=== PATIENT | female | born 1980 | race Caucasian/White ===

== ENCOUNTER 2016-12-27 21:31 | Observation (INO) | payer MEDICAID | END 2016-12-28 00:15 | disposition home or self-care (01) | LOC: FLD 21:31 | PROVIDERS: ADMIT Obstetrics & Gynecology; ATTEND Obstetrics & Gynecology | DX: O47.1 False labor at or after 37 completed weeks of gestation (principal); Z3A.38 38 weeks gestation of pregnancy | CPT/HCPCS: G0378 ×2 ==

== ENCOUNTER → 2017-01-03 | Outpatient (CLI) | payer MEDICAID | LOC: FIMAGING 14:32 | PROVIDERS: ATTEND Obstetrics & Gynecology | DX: O36.5930 Maternal care for other known or suspected poor fetal growth, third trimester, not applicable or unspecified (principal); O09.33 Supervision of pregnancy with insufficient antenatal care, third trimester; O99.333 Smoking (tobacco) complicating pregnancy, third trimester; O09.43 Supervision of pregnancy with grand multiparity, third trimester; F17.200 Nicotine dependence, unspecified, uncomplicated; Z3A.32 32 weeks gestation of pregnancy ==

== ENCOUNTER → 2017-01-17 | Outpatient (CLI) | payer MEDICAID | LOC: FIMAGING 12:25 | PROVIDERS: ATTEND Obstetrics & Gynecology | DX: O09.523 Supervision of elderly multigravida, third trimester (principal); O36.5930 Maternal care for other known or suspected poor fetal growth, third trimester, not applicable or unspecified; Z3A.35 35 weeks gestation of pregnancy; O09.43 Supervision of pregnancy with grand multiparity, third trimester ==

== ENCOUNTER → 2017-01-31 | Outpatient (CLI) | payer MEDICAID | LOC: FIMAGING 12:21 | PROVIDERS: ATTEND Obstetrics & Gynecology | DX: O09.33 Supervision of pregnancy with insufficient antenatal care, third trimester (principal); O09.43 Supervision of pregnancy with grand multiparity, third trimester; O09.523 Supervision of elderly multigravida, third trimester; O99.333 Smoking (tobacco) complicating pregnancy, third trimester; F17.200 Nicotine dependence, unspecified, uncomplicated; Z3A.37 37 weeks gestation of pregnancy ==

== ENCOUNTER 2017-02-06 03:08 | Inpatient (IN) | payer MEDICAID ==
--- NOTE | 2017-02-06 03:18 | EDPHY ---
H & P Stated Complaint: rectal bleeding, 40 weeks preg Time Seen by Provider: 02/06/17 03:18 HPI/ROS: Chief Complaint: Rectal bleeding HPI: 36-year-old woman who is 40 weeks got up this morning and went to the bathroom. After having a bowel movement noticed bright red blood on the toilet tissue and blood in the toilet water. She has not had any vaginal bleeding. No abdominal pain or cramping. Has been feeling the baby move. Called the nurse and was told to present for evaluation. Family is in [place] so they called 911. Patient has not had any complications with this . No labor or vaginal bleeding. Had 1 episode of rectal bleeding about an hour ago, none since. ROS: 10 point Review of Systems is negative except as noted in the HPI. PMH: None Social History: No smoking, no alcohol, no recreational drug use Family History: non-contributory Physical Exam: Gen: Awake, Alert, No Distress HEENT: Nose: no rhinorrhea Eyes: PERRLA, EOMI Mouth: Moist mucosa Neck: Supple, no JVD Abd: Gravid uterus consistent with dates, non-tender : There is no blood from the vaginal introitus Rectal: There are noted hemorrhoids with no active bleeding Ext: no edema, non-tender Skin: no rash Neuro: CN II-XII intact, Sensation grossly intact, Strength 5/5 in bilateral upper and lower extremities - Personal History LMP (Females 10-55): Current Tetanus/Diphtheria Vaccine: Unsure Current Tetanus Diphtheria and Acellular Pertussis (TDAP): Unsure - Medical/Surgical History Hx Asthma: No Hx Chronic Respiratory Disease: No Hx Diabetes: No Hx Cardiac Disease: No Hx Renal Disease: No Hx Cirrhosis: No Hx Alcoholism: No Hx HIV/AIDS: No Hx Splenectomy or Spleen Trauma: No Other PMH: ABD SURGERY, head surgery, FACE ABSCESS, Asthma, Hernia, Hx Anxiety/ Depression, Hx ADHD - Social History Smoking Status: Light smoker Constitutional: Initial Vital Signs Temperature (C) 36.7 C 02/06/17 03:14 Heart Rate 80 02/06/17 03:14 Respiratory Rate 16 02/06/17 03:14 Blood Pressure 123/71 H 02/06/17 03:14 O2 Sat (%) 96 02/06/17 03:14 O2 Delivery Mode Room Air Allergies/Adverse Reactions: codeine Allergy (Verified 09/10/16 06:55) Penicillins Allergy (Verified 09/10/16 06:55) Home Medications: Medication Instructions Recorded Medical Pot 09/10/16 Ondansetron Odt [Zofran Odt 4 mg 4 mg PO Q4PRN PRN #7 tab 09/10/16 (*)] Lidocaine 2% Jelly TP PRN 02/06/17 Percocet 10-325 mg Tablet 0.5 tab PO PRN PRN 02/06/17 1 tab PO DAILY 02/06/17 Medical Decision Making ED Course/Re-evaluation: 36-year-old 40 week with rectal bleeding. No active bleeding at this time. No blood at the vaginal introitus. She is not having abdominal pain or contractions. Hemodynamically is fine. Will discharge to labor and delivery for further evaluation. Departure - Departure Disposition: [facility] Inpatient Acute Clinical Impression: Rectal bleeding, Condition: Fair
[2017-02-06 04:14] LABS: ALANINE AMINOTRANSFERASE 28 IU/L (9-52); ASPARTATE AMINOTRANSFERASE 25 IU/L (14-46); BILIRUBIN,TOTAL 0.5 mg/dL (0.1-1.4); BILIRUBIN-CONJUGATED 0.4 mg/dL (0.0-0.5); BILIRUBIN-UNCONJUGATED 0.1 mg/dL (0.0-1.1); CREATININE 0.6 mg/dL (0.6-1.0); GLOMERULAR FILTRATION RATE > 60; LACTATE DEHYDROGENASE 455 IU/L (313-618); URIC ACID 4.3 mg/dL (2.5-6.8)
[2017-02-06 04:16] LABS: % IMMATURE GRANULYOCYTES 0.4 % (0.0-1.1); ABSOLUTE IMMATURE GRANULOCYTES 0.04 10^3/uL (0.00-0.10); ADD DIFF? NO; ADD MORPH? NO; ADD SCAN? NO; ATYPICAL LYMPHOCYTE FLAG 10 (0-99); FRAGMENT RBC FLAG 0 (0-99); HEMATOCRIT 38.1 % (38.0-47.0); LEFT SHIFT FLG 0 (0-99); LIPEMIA HEMOLYSIS FLAG 90 (0-99); MEAN CELL HEMOGLOBIN 31.1 pg (27.9-34.1); MEAN CELL HEMOGLOBIN CONCENTR. 34.1 g/dL (32.4-36.7); MEAN CELL VOLUME 91.1 fL (81.5-99.8); MEAN PLATELET VOLUME 11.1 fL (8.7-11.7); PLATELET CLUMPS FLAG 30 (0-99); PLATELET COUNT 214 10^3/uL (150-400); RED BLOOD CELL COUNT 4.18 10^6/uL (4.18-5.33)
--- NOTE | 2017-02-06 08:01 | OBPROG ---
OBG Progress Note Assessment/Plan: Assessment: cat 1 fhr pain from hemorroids irregular contractions no further bleeding from hemorroid noted elevated bp occasionally with serial bps pih labs wnl consulted with dr. elary on poc Plan:possible IOL 02/06/17 08:03 Subjective: Pain from hemorroid I am uncomfortable. Denies leaking bleeding or cramping. No further bleeding recttaly has slept since coming to labor and delivery last night at 0300 Objective: 02/06/17 03:16 02/06/17 03:16 Uric Acid 4.3 mg/dL (2.5-6.8) 02/06/17 03:16 Total Bilirubin 0.5 mg/dL (0.1-1.4) 02/06/17 03:16 Conjugated Bilirubin 0.4 mg/dL (0.0-0.5) 02/06/17 03:16 Unconjugated Bilirubin 0.1 mg/dL (0.0-1.1) 02/06/17 03:16 AST 25 IU/L (14-46) 02/06/17 03:16 ALT 28 IU/L (9-52) 02/06/17 03:16 Lactate Dehydrogenase 455 IU/L (313-618) 02/06/17 03:16 Temp Pulse Resp BP Pulse Ox 36.7 C 80 16 123/71 H 96 02/06/17 03:14 02/06/17 03:14 02/06/17 03:14 02/06/17 03:14 02/06/17 03:14 - SVE Dilation (cm): 1 Effacement (%): 50 Station: -2 Current Contraction Pattern: Irregular, Other (Specify) FHR (bpm): 125 FHR Pattern Variability: Moderate FHR Category: 1 Membranes: Intact - Physical Exam General Appearance: WD/WN, alert, no apparent distress Respiratory: chest non-tender, lungs clear, normal breath sounds Cardiac/Chest: regular rate, rhythm Abdomen: normal bowel sounds Genitourinary: rectal (hemorroid bleeding evaluated in the er last night/ after an episode of bleeding after a BM) Membranes: Intact Extremities: normal range of motion, Mary's sign (negative bilaterally ) DTR- Lower Extremities: Knee (R): 1+, Knee (L): 1+ (no clonus bilaterally) Skin: normal color, warm/dry Neuro/Psych: no motor/sensory deficits, alert, normal mood/affect, oriented x 3 ICD10 Worksheet Patient Problems: Problems Problem Status Onset Acute Rectal bleeding Acute
[2017-02-06] MEDS ORDERED: LIDOCAINE 1% 30 ML SDV SC PRN (08:30)
[2017-02-06] MEDS ORDERED: OXYTOCIN/RINGERS LACTATE 1,000 ML IV PRN (08:30)
[2017-02-06] MEDS ORDERED: EPSOM SALT 454 GM TP PRN (08:30)
[2017-02-06] MEDS ORDERED: TERBUTALINE SULFATE 1 MG/ML VIAL IV PRN (08:30)
[2017-02-06] MEDS ORDERED: OLIVE OIL 118 ML BTL MISC PRN (08:30)
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
[2017-02-06] MEDS ORDERED: OXYCODONE/APAP 5/325 TAB PO PRN (08:58)
[2017-02-06] MEDS: NICOTINE 7 MG/24 HR PATCH TD SCH (12:42)
[2017-02-06] MEDS: PROCTOFOAM HC 10 GM CAN PR SCH (12:44)
[2017-02-06] MEDS ORDERED: fentaNYL 100 MCG/2 ML INJ IVP ONE (13:48)
[2017-02-06] MEDS: OXYTOCIN/RINGERS LACTATE 500 ML IV SCH ×2 (14:40→14:41)
[2017-02-06] MEDS ORDERED: fentaNYL 2MCG/ML/BUP 0.1% RTU 100 ML BAG EP ONE (15:47)
[2017-02-06] MEDS ORDERED: BUPIVACAINE 0.25% 30 ML SDV ONE (15:48)
[2017-02-06] MEDS ORDERED: PHENYLEPHRINE HCL 100 MCG/ML SYR ONE (15:48)
[2017-02-06] MEDS ORDERED: fentaNYL 100 MCG/2 ML INJ ONE (15:49)
[2017-02-06] MEDS: fentaNYL 2MCG/ML/BUP 0.1% RTU 100 ML EP SCH ×2 (16:00→21:45)
[2017-02-06] MEDS: LR 1,000 ML IV PRN ×2 (16:14→20:43)
[2017-02-06] MEDS ORDERED: ONDANSETRON 4 MG/2 ML VIAL IVP PRN (17:45)
[2017-02-06] MEDS ORDERED: PHENYLEPHRINE HCL 100 MCG/ML SYR IVP PRN (17:45)
--- NOTE | 2017-02-06 17:49 | POSTANESTH ---
Post Anesthetic Evaluation Cardiovascular Status: Normal, Stable Respiratory Status: Normal, Stable, Similar to Pre-op Cond. Level of Consciousness/Mental Status: Can Participate in Eval, Alert and Oriented Pain Control: Adequate, Prn Tx Ordered Nausea/Vomiting Control: Adequate, Prn Tx Ordered Complications Possibly Related to Anesthesia: None Noted (Tolerated CSE well, stable, comfortable.)
--- NOTE | 2017-02-06 17:53 | PREANESOB ---
Obstetric Pre-Anesthesia Info - General Info Proposed Procedure: Labor and delivery with pitocin. : 5 Para: 4 WBD: 39 - Info Status: Full Term Monitors: External FHR Baseline (bpm): 140 FHR Pattern: Reassuring - Labor Status Cervical Dilation per last OB SVE: 2 Station per last OB SVE: -2 Pitocin: In Use Indications for Labor Analgesia: Induction of Labor, Pain Control Labor Epidural: Proposed Anesthesia ROS: Prior labor epidural x 3. S/P tracheostomy after oral infection. Allergies/Adverse Reactions: Allergy/AdvReac Type Severity Reaction Status Date / Time codeine Allergy Verified 09/10/16 06:55 Penicillins Allergy Verified 09/10/16 06:55 Home Medications: Medication Instructions Recorded Medical Pot 09/10/16 Ondansetron Odt [Zofran Odt 4 mg 4 mg PO Q4PRN PRN #7 tab 09/10/16 (*)] Lidocaine 2% Jelly TP PRN 02/06/17 Percocet 10-325 mg Tablet 0.5 tab PO PRN PRN 02/06/17 1 tab PO DAILY 02/06/17 Visit Medications: Generic Name Dose Route Start Last Admin Trade Name Freq PRN Reason Stop Dose Admin Diphenhydramine HCl 25 - 50 mg 02/06/17 17:45 Benadryl Injection IVP 08/05/17 17:44 Q6HRS PRN Itching Hydrocortisone/Pramoxine 1 camacho 02/06/17 12:00 02/06/17 12:44 Proctofoam-Hc Foam NM 08/05/17 11:59 1 camacho QID CHADWICK Administration Lactated Ringer's 1,000 mls @ 0 mls/hr 02/06/17 08:30 02/06/17 16:14 Lr IV 08/05/17 08:29 1,000 mls PRN PRN Administration SEE PROTOCOL CONDITIONS Protocol Per Protocol Oxytocin/Lactated Ringer's 1,000 mls @ 150 mls/hr 02/06/17 08:30 Pitocin 20 Units/Lr (Premix) IV PRN PRN Post- bleeding Oxytocin/Lactated Ringer's 500 mls @ 0 mls/hr 02/06/17 09:00 02/06/17 14:41 Pitocin 30 Units/Lr (Premix) IV 08/05/17 08:59 500 mls CONT CHADWICK Administration Protocol Per Protocol Fentanyl/Bupivacaine HCl 100 mls @ 0 mls/hr 02/06/17 18:00 Fentanyl/Bupivacaine/Ns 2 Mcg/Ml 0.1% (Premix EP 02/16/17 17:59 CONT CHADWICK Protocol As Directed Lactated Ringer's 500 mls @ 0 mls/hr 02/06/17 18:00 Lr IV 08/05/17 17:59 CONT CHADWICK As Directed Ibuprofen 600 mg 02/06/17 08:30 Motrin PO 08/05/17 08:29 Q6HRS PRN post , inflammation Lidocaine HCl 30 ml 02/06/17 08:30 Lidocaine Hcl 1% SC 08/05/17 08:29 ONCE PRN Episiotomy Magnesium Sulfate 454 gm 02/06/17 08:30 Epsom Salt TP 08/05/17 08:29 PRN PRN perineal discomfort Nicotine 7 mg 02/06/17 12:00 02/06/17 12:42 Nicoderm Cq TD 08/05/17 11:59 7 mg DAILY CHADWICK Administration [place] Oil 118 ml 02/06/17 08:30 Sweet Oil MISC 08/05/17 08:29 ONCE PRN preneal massage Ondansetron HCl 4 mg 02/06/17 17:45 Zofran IVP 08/05/17 17:44 Q4HRS PRN Nausea/Vomiting, Can't Take PO Phenylephrine HCl 100 mcg 02/06/17 17:45 Guru-Synephrine IVP 08/05/17 17:44 .Q2M PRN Hypotension Terbutaline Sulfate 0.25 mg 02/06/17 08:30 Brethine IV 08/05/17 08:29 ONCE PRN Tachysystole Discontinued Medications Generic Name Dose Route Start Last Admin Trade Name Freq PRN Reason Stop Dose Admin Bupivacaine HCl Confirm 02/06/17 15:48 Sensorcaine 0.25% Sdv Administered 02/06/17 15:49 Dose 30 ml .ROUTE .STK-MED ONE Fentanyl 25 mcg 02/06/17 13:48 02/06/17 14:25 Sublimaze IVP 02/06/17 13:49 25 mcg ONCE ONE Administration Fentanyl Confirm 02/06/17 15:49 Sublimaze Administered 02/06/17 15:50 Dose 100 mcg .ROUTE .STK-MED ONE Fentanyl/Bupivacaine HCl Confirm 02/06/17 15:47 Fentanyl/Bupivacaine/Ns 2 Mcg/Ml 0.1% (Premix Administered 02/06/17 15:48 Dose 100 ml EP .STK-MED ONE Oxycodone/Acetaminophen 1 tab 02/06/17 08:58 02/06/17 09:33 Percocet 5/325 PO 02/16/17 08:57 1 tab Q4HRS PRN Administration Pain, Severe Able to Take PO Phenylephrine HCl Confirm 02/06/17 15:48 Guru-Synephrine Administered 02/06/17 15:49 Dose 1,000 mcg .ROUTE .STK-MED ONE - Anesthesia History Response to Local Anesthetics: Normal Anesthesia & Operative History: No Prior Problems - Social History Substance Use/Abuse: Tobacco, Drug Use/Abuse - Focused Exam Latest Vital Signs (Nursing): Temp Pulse Resp BP Pulse Ox 36.7 C 80 16 123/71 H 96 02/06/17 03:14 02/06/17 03:14 02/06/17 03:14 02/06/17 03:14 02/06/17 03:14 Blood Pressure: 137/90 Heart Rate: 93 Physical Exam: Tracheostomy scar otherwise within normal limits. ASA Status: II Labs: Patient ABO/Rh A POSITIVE 02/06/17 11:55 Uric Acid 4.3 mg/dL (2.5-6.8) 02/06/17 03:16 Total Bilirubin 0.5 mg/dL (0.1-1.4) 02/06/17 03:16 Conjugated Bilirubin 0.4 mg/dL (0.0-0.5) 02/06/17 03:16 Unconjugated Bilirubin 0.1 mg/dL (0.0-1.1) 02/06/17 03:16 AST 25 IU/L (14-46) 02/06/17 03:16 ALT 28 IU/L (9-52) 02/06/17 03:16 Lactate Dehydrogenase 455 IU/L (313-618) 02/06/17 03:16 - Plan Anesthetic Plan: CSE Consent Signed and on Chart: Yes Patient/Guardian Understands and Agrees to Plan: Yes
[2017-02-06] MEDS ORDERED: LR 500 ML IV SCH (18:00)
--- NOTE | 2017-02-06 18:06 | OBPROG ---
OBG Progress Note Assessment/Plan: Assessment: cat 1 fhr pain from hemorroids regular contractions pitocin at 6mu denies pain after epidural placement elevated bp occasionally with serial bps pih labs wnl consulted with dr. leary on poc exam -/-3 cephalic exam to attempt to arom head remains to high will recheck in several hours Plan:iol, epidural 02/06/17 08:03 02/06/17 18:04 02/06/17 18:05 Objective: Patient ABO/Rh A POSITIVE 02/06/17 11:55 Uric Acid 4.3 mg/dL (2.5-6.8) 02/06/17 03:16 Total Bilirubin 0.5 mg/dL (0.1-1.4) 02/06/17 03:16 Conjugated Bilirubin 0.4 mg/dL (0.0-0.5) 02/06/17 03:16 Unconjugated Bilirubin 0.1 mg/dL (0.0-1.1) 02/06/17 03:16 AST 25 IU/L (14-46) 02/06/17 03:16 ALT 28 IU/L (9-52) 02/06/17 03:16 Lactate Dehydrogenase 455 IU/L (313-618) 02/06/17 03:16 Temp Pulse Resp BP Pulse Ox 36.7 C 93 16 137/90 H 96 02/06/17 03:14 02/06/17 17:55 02/06/17 03:14 02/06/17 17:55 02/06/17 03:14 - SVE Dilation (cm): 2 Effacement (%): 75 Station: -3 Current Contraction Pattern: Regular FHR (bpm): 135 FHR Pattern Variability: Moderate FHR Category: 1 Membranes: Intact ICD10 Worksheet Patient Problems: Problems Problem Status Onset Acute Rectal bleeding Acute
[2017-02-06] MEDS ORDERED: LIDOCAINE 1% 30 ML SDV ONE (19:24)
[2017-02-06] MEDS ORDERED: AMMONIA AROMATIC 1 EACH AMP IH ONE (19:25)
[2017-02-06] MEDS ORDERED: OLIVE OIL 118 ML BTL ONE (19:25)
[2017-02-06] MEDS ORDERED: TERBUTALINE SULFATE 1 MG/ML VIAL ONE (19:25)
[2017-02-06] MEDS ORDERED: OXYTOCIN 10 UNIT/ML VIAL ONE (19:25)
[2017-02-06] MEDS ORDERED: MISOPROSTOL 200 MCG TAB ONE (19:26)
--- NOTE | 2017-02-06 20:16 | OBPROG ---
OBG Progress Note Assessment/Plan: Assessment: cat 1 fhr regular contractions pitocin at 10mu complaint of pain epidural not working well BP wnl pih labs wnl consulted with dr. leary on poc exam -/-3 cephalic exam to attempt to arom head remains to high will recheck in several hours Plan pitocin per protocol, epidural troubleshotting to assist with pain relief 02/06/17 08:03 02/06/17 18:04 02/06/17 18:05 02/06/17 20:15 Subjective: Feelig pain with the epidural. T10, T8 level anesthesia called to assess the epidural to assist with pain relief at patients request Objective: Patient ABO/Rh A POSITIVE 02/06/17 11:55 Uric Acid 4.3 mg/dL (2.5-6.8) 02/06/17 03:16 Total Bilirubin 0.5 mg/dL (0.1-1.4) 02/06/17 03:16 Conjugated Bilirubin 0.4 mg/dL (0.0-0.5) 02/06/17 03:16 Unconjugated Bilirubin 0.1 mg/dL (0.0-1.1) 02/06/17 03:16 AST 25 IU/L (14-46) 02/06/17 03:16 ALT 28 IU/L (9-52) 02/06/17 03:16 Lactate Dehydrogenase 455 IU/L (313-618) 02/06/17 03:16 Temp Pulse Resp BP Pulse Ox 36.7 C 93 16 137/90 H 96 02/06/17 03:14 02/06/17 17:55 02/06/17 03:14 02/06/17 17:55 02/06/17 03:14 - SVE Dilation (cm): 2 Effacement (%): 75 Station: -3 Current Contraction Pattern: Regular FHR (bpm): 135 FHR Pattern Variability: Moderate FHR Category: 1 Membranes: Intact ICD10 Worksheet Patient Problems: Problems Problem Status Onset Acute Rectal bleeding Acute
--- NOTE | 2017-02-06 21:36 | OBPROG ---
OBG Progress Note Assessment/Plan: Assessment: cat 1 fhr regular contractions pitocin at 14mu epidural working well to assist with pain relief BP wnl pih labs wnl consulted with dr. leary on poc exam 2-/-2 cephalic arom clear fluid complaint of nausea Plan pitocin per protocol, epidural for pain relief zofran for nausea 02/06/17 08:03 02/06/17 18:04 02/06/17 18:05 02/06/17 20:15 02/06/17 21:34 Subjective: Denies pain. I feel nausea Objective: Patient ABO/Rh A POSITIVE 02/06/17 11:55 Uric Acid 4.3 mg/dL (2.5-6.8) 02/06/17 03:16 Total Bilirubin 0.5 mg/dL (0.1-1.4) 02/06/17 03:16 Conjugated Bilirubin 0.4 mg/dL (0.0-0.5) 02/06/17 03:16 Unconjugated Bilirubin 0.1 mg/dL (0.0-1.1) 02/06/17 03:16 AST 25 IU/L (14-46) 02/06/17 03:16 ALT 28 IU/L (9-52) 02/06/17 03:16 Lactate Dehydrogenase 455 IU/L (313-618) 02/06/17 03:16 Temp Pulse Resp BP Pulse Ox 36.7 C 93 16 137/90 H 96 02/06/17 03:14 02/06/17 17:55 02/06/17 03:14 02/06/17 17:55 02/06/17 03:14 - SVE Dilation (cm): 2 Effacement (%): 75 Station: -2 Current Contraction Pattern: Regular FHR (bpm): 130 FHR Pattern Variability: Moderate FHR Category: 1 Membranes: AROM Amniotic Fluid Color: Clear ICD10 Worksheet Patient Problems: Problems Problem Status Onset Acute Rectal bleeding Acute
--- NOTE | 2017-02-07 00:40 | OBPROG ---
OBG Progress Note Assessment/Plan: Assessment: cat 1 fhr regular contractions pitocin at 14mu epidural working well to assist with pain relief BP wnl pih labs wnl consulted with dr. leary on poc exam cervix anterior cephalic arom clear fluid complaint of nausea Plan pitocin per protocol, epidural for pain relief zofran for nausea 02/06/17 08:03 02/06/17 18:04 02/06/17 18:05 02/06/17 20:15 02/06/17 21:34 02/07/17 00:40 Objective: Patient ABO/Rh A POSITIVE 02/06/17 11:55 Uric Acid 4.3 mg/dL (2.5-6.8) 02/06/17 03:16 Total Bilirubin 0.5 mg/dL (0.1-1.4) 02/06/17 03:16 Conjugated Bilirubin 0.4 mg/dL (0.0-0.5) 02/06/17 03:16 Unconjugated Bilirubin 0.1 mg/dL (0.0-1.1) 02/06/17 03:16 AST 25 IU/L (14-46) 02/06/17 03:16 ALT 28 IU/L (9-52) 02/06/17 03:16 Lactate Dehydrogenase 455 IU/L (313-618) 02/06/17 03:16 Temp Pulse Resp BP Pulse Ox 36.7 C 93 16 137/90 H 96 02/06/17 03:14 02/06/17 17:55 02/06/17 03:14 02/06/17 17:55 02/06/17 03:14 ICD10 Worksheet Patient Problems: Problems Problem Status Onset Acute Rectal bleeding Acute
--- NOTE | 2017-02-07 02:32 | OBPROG ---
OBG Progress Note Assessment/Plan: Assessment: cat 1 fhr regular contractions pitocin at 12mu epidural working well to assist with pain relief BP wnl pih labs wnl consulted with dr. leary on poc exam /-1 cervix anterior cephalic previous exam [id number] iupc placed with ease clear fluid Plan pitocin per protocol, epidural for pain relief zofran for nausea 02/06/17 08:03 02/06/17 18:04 02/06/17 18:05 02/06/17 20:15 02/06/17 21:34 02/07/17 00:40 02/07/17 02:30 Subjective: Continuing to feel comfortable with the epidural Objective: Patient ABO/Rh A POSITIVE 02/06/17 11:55 Uric Acid 4.3 mg/dL (2.5-6.8) 02/06/17 03:16 Total Bilirubin 0.5 mg/dL (0.1-1.4) 02/06/17 03:16 Conjugated Bilirubin 0.4 mg/dL (0.0-0.5) 02/06/17 03:16 Unconjugated Bilirubin 0.1 mg/dL (0.0-1.1) 02/06/17 03:16 AST 25 IU/L (14-46) 02/06/17 03:16 ALT 28 IU/L (9-52) 02/06/17 03:16 Lactate Dehydrogenase 455 IU/L (313-618) 02/06/17 03:16 Temp Pulse Resp BP Pulse Ox 36.7 C 93 16 137/90 H 96 02/06/17 03:14 02/06/17 17:55 02/06/17 03:14 02/06/17 17:55 02/06/17 03:14 - SVE Dilation (cm): 5 Effacement (%): 75 Station: -2 Current Contraction Pattern: Regular FHR (bpm): 125 FHR Pattern Variability: Moderate FHR Category: 1 Amniotic Fluid Color: Clear ICD10 Worksheet Patient Problems: Problems Problem Status Onset Acute Rectal bleeding Acute
[2017-02-07] MEDS ORDERED: ACETAMINOPHEN 325 MG TAB PO PRN (04:15)
[2017-02-07] MEDS ORDERED: SIMETHICONE 80 MG TAB CHEW PO PRN (04:15)
--- NOTE | 2017-02-07 04:15 | OBPROC ---
- Labor and Delivery Onset of Contractions Date: 02/07/17 Onset of Contractions Time: 14:00 Onset of Contractions Type: Induced Rupture of Membranes Date: 02/06/17 Rupture of Membranes Time: 23:15 Rupture of Membranes Type: Artificial Amniotic Fluid Color: Clear Dilation Complete Time: 03:45 Delivery Type: Spontaneous Placenta Delivery Date: 02/07/17 Placenta Delivery Time: 03:55 EBL: 350 Complications: None - Medications Labor Augmentation/Induction Meds Used: Pitocin Anesthesia: Epidural - [place] Info Infant A Delivery Date: 02/07/17 Delivery Time: 03:49 Score (1 Min): 9 Score (5 Min): 9
[2017-02-07] MEDS: IBUPROFEN 600 MG TAB PO PRN ×3 (06:44→19:11)
[2017-02-07] MEDS ORDERED: LIDOCAINE 2% JELLY 5 ML TUBE TP ONE (07:25)
[2017-02-07] MEDS: OXYCODONE/APAP 5/325 TAB PO PRN ×3 (08:27→20:21)
[2017-02-07 09:28] LABS: PHENCYCLIDINE URINE BCH < 6 ng/ml (NEGATIVE); PHENCYCLIDINE URINE BCH NEGATIVE (NEGATIVE); TETRAHYDROCANNABINOL URINE < 5 ng/mL (NEGATIVE); TETRAHYDROCANNABINOL URINE NEGATIVE (NEGATIVE)
[2017-02-07] MEDS ORDERED: LIDOCAINE 2% JELLY 5 ML TUBE TP PRN (12:00)
[2017-02-07] MEDS: NICOTINE 7 MG/24 HR PATCH TD SCH (13:37)
[2017-02-07] MEDS: DOCUSATE SODIUM 100 MG CAP PO PRN (13:37)
[2017-02-07] MEDS: PROCTOFOAM HC 10 GM CAN PR SCH ×5 (13:37→22:00)
[2017-02-08] MEDS: IBUPROFEN 600 MG TAB PO PRN ×3 (01:26→13:26)
[2017-02-08] MEDS: OXYCODONE/APAP 5/325 TAB PO PRN ×3 (02:28→14:29)
[2017-02-08] MEDS: DOCUSATE SODIUM 100 MG CAP PO PRN (08:55)
[2017-02-08] MEDS: PROCTOFOAM HC 10 GM CAN PR SCH ×3 (09:23→14:29)
[2017-02-08 11:31] VITALS: BP 131/87; PULSE 89; RESP 16; TEMP 98.2; O2SAT 96
--- NOTE | 2017-02-08 12:54 | SOAPPROG ---
[facility] Progress Note Assessment/Plan: Assessment: 36yo F with external hemorrhoids She would like to wait until swelling down a bit, then would like to pursue surgical hemorrhoidectomy to prevent recurrence Indocin 50mg TID with meals Continue proctonid[place] F/u with Dr. Babcock in 2 weeks, call [phone] to make appt. Call sooner if symptoms worsen Formal consult to follow Plan: 02/08/17 12:53 Objective: Vital Signs Temp Pulse Resp BP Pulse Ox 36.8 C 89 16 131/87 H 96 02/08/17 08:05 02/08/17 08:05 02/08/17 08:05 02/08/17 08:05 02/08/17 08:05 Laboratory Results 02/08/17 04:10 02/07/17 02/08/17 02/09/17 05:59 05:59 05:59 Output Total 300 Balance -300 ICD10 Worksheet Patient Problems: Problems Problem Status Onset Acute Rectal bleeding Acute Spontaneous vaginal delivery Acute
[2017-02-08] MEDS: NICOTINE 7 MG/24 HR PATCH TD SCH (13:27)
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
== END 2017-02-08 14:45 | disposition home or self-care (01) | DRG 775 ==
LOC: EDUNIT# → FLD 03:15 → OBSVTOIN 08:30 → FOB 02-07 08:58
PROVIDERS: ADMIT Obstetrics & Gynecology; ATTEND Obstetrics & Gynecology
DX: O22.43 Hemorrhoids in pregnancy, third trimester (principal); Z37.0 Single live birth; O99.333 Smoking (tobacco) complicating pregnancy, third trimester; F17.200 Nicotine dependence, unspecified, uncomplicated
CPT/HCPCS: 80307; G0480; J2370; J2405; J2590; J3010; J3105